=== PATIENT | male | born 1985 | race Two or more races ===

== ENCOUNTER 2018-06-07 21:45 | Emergency (ER) | payer OTHER ==
[~2018-06-07] VITALS: Ht 177.8 cm; Wt 92.1 kg
[2018-06-07 21:50] VITALS: Ht 177.8 cm; Wt 92.1 kg
[2018-06-07 22:45] LABS: BASOPHIL % 0.5 % (0-2); PLATELET COUNT 202 x10^3mcL (130-400); RED CELL DISTRIBUTION WIDTH 13.1 % (11.5-14.5)
[2018-06-07 22:59] LABS: CALCIUM 8.4 mg/dL (8.5-10.1); CHLORIDE SERUM 105 mmol/L (98-107); CREATININE SERUM 0.9 mg/dL (0.7-1.3); GFR1 > 60 mL/min; GLUCOSE SERUM 95 mg/dL (74-106); POTASSIUM SERUM 4.2 mmol/L (3.5-5.1); SODIUM SERUM 138 mmol/L (136-145)
[2018-06-07 23:04] LABS: ALBUMIN 3.4 g/dL (3.4-5.0); ALKALINE PHOSPHATASE 75 U/L (46-116); ALT/SGPT 62 U/L (16-63); AST/SGOT 60 U/L (15-37); BILIRUBIN TOTAL 0.62 mg/dL (0.20-1.00); MAGNESIUM 2.2 mg/dL (1.8-2.4); TOTAL PROTEIN, SERUM 6.4 g/dL (6.4-8.2)
[2018-06-08 00:29] VITALS: BP 118/51
== END 2018-06-08 00:29 | disposition home or self-care (01) ==
LOC: ED 21:45
PROVIDERS: Emergency Medicine
DX: E86.0 Dehydration (principal); M62.82 Rhabdomyolysis; T67.9XXA Effect of heat and light, unspecified, initial encounter; X30.XXXA Exposure to excessive natural heat, initial encounter; Y93.89 Activity, other specified; Y92.89 Other specified places as the place of occurrence of the external cause; Y99.8 Other external cause status
CPT/HCPCS: J1885; J2405; J7030

== ENCOUNTER 2020-09-19 05:36 | Emergency (ER) | payer OTHER ==
[~2020-09-19] VITALS: Ht 177.8 cm; Wt 102.1 kg
[2020-09-19 05:38] VITALS: Ht 177.8 cm; Wt 102.1 kg
[2020-09-19 06:58] VITALS: BP 159/91
== END 2020-09-19 06:58 | disposition home or self-care (01) ==
LOC: ED 05:36
DX: R50.9 Fever, unspecified (principal); R05 Cough; M79.10 Myalgia, unspecified site; R06.02 Shortness of breath; R11.0 Nausea; R07.89 Other chest pain; Z20.828 Contact with and (suspected) exposure to other viral communicable diseases
CPT/HCPCS: U0003